=== PATIENT | male | born 1990 | race African-American/Black ===

== ENCOUNTER → 2017-06-06 | Outpatient (CLI) | payer BC ==
--- NOTE | ~2017-06-06 | US115 ---
[facility] A Service of [facility] RADIOLOGY TEXT RESULTS PATIENT: DAVID IVY LOCATION: [facility] : 86 UNIT #: [id number] AGE: [address]: David Adair MD SEX: M ORDER DR: [id number] [facility]. [place], [place] [address] [id number] O MR#: [id number] Acc #: [id number] NAME: DAVID IVY : 1990 SEX: M STUDY DATE/TIME: 06/06/2017 15:00 UNIT: [facility] ROOM: STUDY DESCRIPTION: US Scrotum and Contents Attending Physician: David Adair M.D. Referring Physician: David Adair M.D. Ordering Physician: David Adair M.D. Primary Care Physician: David Adair M.D. MEDICAL IMAGING REPORT This report is preliminary unless electronic signature is present EXAM Scrotal ultrasound HISTORY Pain and swelling right testis x2 years, hernia repair 8 years ago. FINDINGS Real-time examination demonstrates the testicles to be of normal size, shape and echogenicity. Color Doppler demonstrates the presence of flow bilaterally. No intratesticular mass lesion is identified. Epididymi appear normal. There is a right-sided varicocele. In the right groin there is a benign-appearing lymph node measuring 9.3 mm x 4.4 mm x 8.4 mm. IMPRESSION 1. The testicles and epididymi appear normal. 2. Questionable mild right-sided varicocele. 3. Corresponding to the site of the patient's pain in the right groin there is a small lymph node measuring a maximum of 9 mm. This has benign imaging characteristics. Dictated by... Hugh Reyes M.D. THIS IS AN ELECTRONICALLY VERIFIED REPORT Hugh Reyes M.D. at 06/07/2017 7:33 AM RADHA/sri TD: 06/07/2017 00:16 JOB #: [id number] MEDICAL IMAGING REPORT [facility] A Service of [facility] RADIOLOGY TEXT RESULTS PATIENT: DAVID IVY LOCATION: [facility] #: [id number] : [birth year] UNIT #: [id number] AGE: [address]: David Adair MD SEX: M ORDER DR: Page 1 of 1 COPY
== END | disposition home or self-care (01) ==
LOC: CGUS 14:30
DX: N50.811 Right testicular pain (principal); N50.89 Other specified disorders of the male genital organs
CPT/HCPCS: 76870; 93976